=== PATIENT | male | born 1955 ===

== ENCOUNTER → 2022-06-26 | Outpatient (CLI) | payer MEDICARE | END | disposition home or self-care (01) | DX: N40.1 Benign prostatic hyperplasia with lower urinary tract symptoms (principal) ==

== ENCOUNTER → 2024-07-09 | Outpatient (CLI) | payer OTHER ==
[2024-07-10 13:36] LABS: Stool Occult Bld Immuno 1 Negative (NEGATIVE)
== END ==
LOC: LAB 13:03 → LAB SHORT 13:03 → LAB FUT 03-01 09:45 → EDSTATUS 03-01 09:45
PROVIDERS: Internal Medicine Gastroenterology
DX: Z12.11 Encounter for screening for malignant neoplasm of colon (principal)
CPT/HCPCS: 82274